=== PATIENT | female | born 1990 | race Caucasian/White ===

== ENCOUNTER 2017-02-27 20:17 | Emergency (ER) | payer OTHER ==
[~2017-02-27] VITALS: Ht 152.4 cm; Wt 54.4 kg
[2017-02-27] MEDS ORDERED: LACTATED RINGERS 1,000 ML IV ONE (20:58)
[2017-02-27] MEDS ORDERED: ONDANSETRON 4 MG/2 ML (SDV) Z0FRAN IVP ONE (21:00)
[2017-02-27 21:06] LABS: BILIRUBIN,URINE NEGATIVE (NEGATIVE); KETONES,URINE 3+ (NEGATIVE); LEUKOCYTE ESTERASE ,URINE NEGATIVE (NEGATIVE); NITRITE,URINE NEGATIVE (NEGATIVE); PH,URINE 5 (5-9); PROTEIN,URINE 1+ (NEGATIVE); UROBILINOGEN,URINE NORMAL (NORMAL)
[2017-02-27 21:19] LABS: WBC,URINE 0-2 /HPF
[2017-02-27 21:25] LABS: BASOPHILS % (AUTO) 0 % (0-10); EOSINOPHILS % (AUTO) 0 % (0-10); LYMPHOCYTES # (AUTO) 0.6 X 10^3 (1.0-4.0); LYMPHOCYTES % (AUTO) 10 % (12-44); MEAN CORPUSCULAR HEMOGLOBIN 23 PG (25-34); MEAN CORPUSCULAR HGB CONC 32 G/DL (32-36); MEAN CORPUSCULAR VOLUME 73 FL (80-99); MEAN PLATELET VOLUME 12.3 FL (7.4-10.4); MONOCYTES # (AUTO) 0.3 X 10^3 (0.0-1.0); MONOCYTES % (AUTO) 5 % (0-12); NEUTROPHILS # (AUTO) 4.7 X 10^3 (1.8-7.8); NEUTROPHILS % (AUTO) 85 % (42-75); PLATELET COUNT 190 10^3/uL (130-400); RED CELL DISTRIBUTION WIDTH 15.4 % (10.0-14.5); WHITE BLOOD COUNT 5.6 10^3/uL (4.3-11.0)
[2017-02-27 21:34] LABS: PROTHROMBIN TIME PATIENT 12.5 SEC (12.2-14.7)
[2017-02-27 21:43] LABS: ALANINE AMINOTRANSFERASE 8 U/L (0-55); ALBUMIN 4.3 G/DL (3.2-4.5); AMYLASE 57 U/L (25-125); ANION GAP 13 MMOL/L (5-14); ASPARTATE AMINO TRANSFERASE 11 U/L (5-34); BILIRUBIN,TOTAL 0.9 MG/DL (0.1-1.0); BLOOD UREA NITROGEN 9 MG/DL (7-18); BUN/CREATININE RATIO 11; CALCIUM 9.4 MG/DL (8.5-10.1); CARBON DIOXIDE 24 MMOL/L (21-32); CHLORIDE 101 MMOL/L (98-107); CREATININE SERUM 0.83 MG/DL (0.60-1.30); GFR ESTIMATED > 60; GLUCOSE 96 MG/DL (70-105); LIPASE 19 U/L (8-78); MAGNESIUM 1.7 MG/DL (1.8-2.4); POTASSIUM 3.8 MMOL/L (3.6-5.0); SODIUM 138 MMOL/L (135-145); TOTAL PROTEIN 7.8 G/DL (6.4-8.2)
[2017-02-27] MEDS ORDERED: RX-ONDANSETRON 4 MG ODT (ZOFRAN) PPK #4 PO STA (22:20)
[2017-02-27] MEDS ORDERED: ONDA4TAB8 PO (22:20)
--- NOTE | 2017-02-27 22:20 | ED General ---
General Chief Complaint: General Problems/Pain Stated Complaint: ACHES,FEVER,VOMMITTING Nursing Triage Note: PT TO ED 5 W/ FAMILY FOR C/O FATIGUE, BODY ACHES ET VOMITING X1 TODAY Nursing Sepsis Screen: No Definite Risk Source of Information: Spouse Exam Limitations: Other (PT DOES NOT SPEAK ANY TELUGU) History of Present Illness Time Seen by Provider: 20:45 Initial Comments STATES THAT PT WOKE UP THIS AM WITH HEADACHE, BODY ACHES, CHILLS, TIRED VOMITED X 1 A SMALL AMOUNT THIS EVENING NO DIARRHEA NO ABDOMINAL PAIN NO URINARY SYMPTOMS--VOIDING A NORMAL AMOUNT HAS HAD MINIMAL INTAKE TODAY NO COUGH OR URI SYMPTOMS NO SORE THROAT HAS NOT TAKEN ANYTHING FOR SYMPTOMS NO KNOWN SICK CONTACTS PCP: DR. REDMOND AT [facility] Allergies and Home Medications Allergies Coded Allergies: No Known Drug Allergies (Unverified , 02/25/17) Home Medications Ondansetron 4 Mg Tab.rapdis, 4 MG PO Q4H, #10 Prescribed by: FRANCISCO DUNHAM on 02/27/17 2220 Constitutional: see HPI, chills, No dizziness, malaise EENTM: no symptoms reported, No nose congestion, No throat pain Respiratory: no symptoms reported, No cough, No short of breath Cardiovascular: no symptoms reported Gastrointestinal: see HPI, No abdominal pain, No constipation, No diarrhea, loss of appetite, nausea, vomiting Genitourinary: no symptoms reported : No LMP: Feb 26, 2017 Musculoskeletal: see HPI (BODY ACHES) Skin: no symptoms reported, No rash Psychiatric/Neurological: See HPI, Headache, Denies Numbness, Denies Paresthesia, Denies Seizure, Denies Tingling, Denies Tremors Hematologic/Lymphatic: See HPI, Anemia (SEEN [facility] BY DR. MELTON 2 DAYS AGO FOR IRON SHOT--BEING TREATED FOR ANEMIA) Immunological/Allergic: no symptoms reported Past Vqyipym-Lofbgp-Kboxco Hx Patient Social History Alcohol Use: Denies Use Recreational Drug Use: No Smoking Status: Never a Smoker 2nd Hand Smoke Exposure: No Recent Foreign Travel: No Contact w/Someone Who Travel: No Recent Infectious Disease Expo: No Recent Hopitalizations: No Surgeries HX Surgeries: Yes ( X 2) Surgeries: Section Respiratory Hx Respiratory Disorders: No Cardiovascular Hx Cardiac Disorders: No Neurological Hx Neurological Disorders: No Reproductive System : No Hx : 2 Hx Para: 2 Hx Reproductive Disorders: No Genitourinary Hx Genitourinary Disorders: No Gastrointestinal Hx Gastrointestinal Disorders: No Musculoskeletal Hx Musculoskeletal Disorders: No Endocrine Hx Endocrine Disorders: No HEENT HX ENT Disorders: No Cancer Hx Cancer: No Psychosocial Hx Psychiatric Problems: No Blood Transfusions Hx Blood Disorders: Yes (ANEMIA) Physical Exam Vital Signs Vital Sign - Last 12Hours 02/27/17 20:24 Temp 97.2 Pulse 116 Resp 20 B/P (MAP) 112/83 Pulse Ox 97 O2 Delivery Room Air Capillary Refill : Less Than 3 Seconds General Appearance: No Apparent Distress, WD/WN HEENT: PERRL/EOMI, TMs Normal, Normal ENT Inspection, Pharynx Normal Neck: Full Range of Motion, Non Tender, Supple, Lymphadenopathy (L) (MILD ANTERIOR/POSTERIOR), Lymphadenopathy (R) (MILD ANTERIOR/POSTERIOR) Respiratory: Normal Breath Sounds, No Accessory Muscle Use, No Respiratory Distress Cardiovascular: No Edema, No JVD, No Murmur, Normal Peripheral Pulses, Tachycardia Gastrointestinal: Normal Bowel Sounds, No Organomegaly, No Pulsatile Mass, Non Tender, Soft Back: Normal Inspection, No CVA Tenderness Extremity: Normal Capillary Refill, Normal Inspection, Normal Range of Motion, Non Tender, No Calf Tenderness, No Pedal Edema Neurologic/Psychiatric: Alert, Oriented x3, No Motor/Sensory Deficits, Normal Mood/Affect, chief medical officer II-XII Norm as Tested Skin: Warm/Dry, Pallor Progress/Results/Core Measures Results/Orders Lab Results Laboratory Tests Test 02/27/17 20:59 02/27/17 21:07 02/27/17 21:58 Range/Units Urine Color YELLOW Urine Clarity SLIGHTLY CLOUDY Urine pH 5 5-9 Urine Specific [place] 1.025 H 1.016-1.022 Urine Protein 1+ H NEGATIVE Urine Glucose (UA) NEGATIVE NEGATIVE Urine Ketones 3+ H NEGATIVE Urine Nitrite NEGATIVE NEGATIVE Urine Bilirubin NEGATIVE NEGATIVE Urine Urobilinogen NORMAL NORMAL MG/DL Urine Leukocyte Esterase NEGATIVE NEGATIVE Urine RBC (Auto) 5+ H NEGATIVE Urine RBC 10-25 H /HPF Urine WBC 0-2 /HPF Urine Squamous Epithelial Cells 2-5 /HPF Urine Crystals NONE /LPF Urine Bacteria TRACE /HPF Urine Casts NONE /LPF Urine Mucus LARGE H /LPF Urine Culture Indicated NO White Blood Count 5.6 4.3-11.0 10^3/uL Red Blood Count 5.40 4.35-5.85 10^6/uL Hemoglobin 12.5 11.5-16.0 G/DL Hematocrit 39 35-52 % Mean Corpuscular Volume 73 L 80-99 FL Mean Corpuscular Hemoglobin 23 L 25-34 PG Mean Corpuscular Hemoglobin Concent 32 32-36 G/DL Red Cell Distribution Width 15.4 H 10.0-14.5 % Platelet Count 190 130-400 10^3/uL Mean Platelet Volume 12.3 H 7.4-10.4 FL Neutrophils (%) (Auto) 85 H 42-75 % Lymphocytes (%) (Auto) 10 L 12-44 % Monocytes (%) (Auto) 5 0-12 % Eosinophils (%) (Auto) 0 0-10 % Basophils (%) (Auto) 0 0-10 % Neutrophils # (Auto) 4.7 1.8-7.8 X 10^3 Lymphocytes # (Auto) 0.6 L 1.0-4.0 X 10^3 Monocytes # (Auto) 0.3 0.0-1.0 X 10^3 Eosinophils # (Auto) 0.0 0.0-0.3 10^3/uL Basophils # (Auto) 0.0 0.0-0.1 10^3/uL Prothrombin Time 12.5 12.2-14.7 SEC INR Comment 1.0 0.8-1.4 Activated Partial Thromboplast Time 28 24-35 SEC Sodium Level 138 135-145 MMOL/L Potassium Level 3.8 3.6-5.0 MMOL/L Chloride Level 101 98-107 MMOL/L Carbon Dioxide Level 24 21-32 MMOL/L Anion Gap 13 5-14 MMOL/L Blood Urea Nitrogen 9 7-18 MG/DL Creatinine 0.83 0.60-1.30 MG/DL Estimat Glomerular Filtration Rate > 60 BUN/Creatinine Ratio 11 Glucose Level 96 70-105 MG/DL Calcium Level 9.4 8.5-10.1 MG/DL Magnesium Level 1.7 L 1.8-2.4 MG/DL Total Bilirubin 0.9 0.1-1.0 MG/DL Aspartate Amino Transf (AST/SGOT) 11 5-34 U/L Alanine Aminotransferase (ALT/SGPT) 8 0-55 U/L Alkaline Phosphatase 58 40-136 U/L Total Protein 7.8 6.4-8.2 G/DL Albumin 4.3 3.2-4.5 G/DL Amylase Level 57 25-125 U/L Lipase 19 8-78 U/L TSH [place] Testing 1.85 0.35-4.94 UIU/ML Monoscreen NEGATIVE NEGATIVE Group A Streptococcus Screen NEGATIVE NEGATIVE Micro Results Microbiology 02/27/17 Influenza Types A,B Antigen (MANDY) - Final, Complete My Orders Orders - FRANCISCO DUNHAM DO Amylase (02/27/17 20:58) Cbc With Automated Diff (02/27/17 20:58) Comprehensive Metabolic Panel (02/27/17 20:58) Lipase (02/27/17 20:58) Magnesium (02/27/17 20:58) Monotest (02/27/17 20:58) Protime With Inr (02/27/17 20:58) Partial Thromboplastin Time (02/27/17 20:58) Rapid Strep A Screen (02/27/17 20:58) Thyroid Analyzer (02/27/17 20:58) Ondansetron Injection (Zofran Injectio (02/27/17 21:00) Saline Lock/Iv-Start (02/27/17 20:58) Lactated Ringers (Lr 1000 Ml Iv Solution (02/27/17 20:58) Urine Bedside (02/27/17 21:02) Chest Pa/Lat (2 View) (02/27/17 21:20) Rx-Ondansetron Po (Rx-Zofran Po) (02/27/17 22:20) Rx-Ondansetron Po (Rx-Zofran Po) (02/27/17 22:31) Medications Given in ED Current Medications Medications Dose Ordered Sig/Dudley Route Start Time Stop Time Status Last Admin Dose Admin Lactated Ringer's 1,000 ml @ 0 mls/hr Q0M ONCE IV 02/27/17 20:58 02/27/17 21:00 DC 02/27/17 21:08 1,000 MLS/HR Ondansetron HCl 4 mg ONCE ONCE IVP 02/27/17 21:00 02/27/17 21:01 DC 02/27/17 21:08 4 MG Vital Signs/I&O Vital Sign - Last 12Hours 02/27/17 02/27/17 20:24 22:39 Temp 97.2 Pulse 116 104 Resp 20 18 B/P (MAP) 112/83 Pulse Ox 97 97 O2 Delivery Room Air Intake and Output 02/28/17 00:00 Intake Total 1000 ml Balance 1000 ml Blood Pressure Mean: 93 Point of Care Testing Urine -Bedside: Negative Progress Note : Progress Note UNEVENTFUL ER STAY Departure Impression Impression: Primary Impression: Viral syndrome Disposition: 01 HOME, SELF-CARE Condition: Stable Departure-Patient Inst. Referrals: THEODORA BONE DO (PCP) Primary Care Physician Patient Instructions: VIRAL SYNDROME Add. Discharge Instructions: LOTS OF CLEAR LIQUIDS--WAETR, BROTH, JELLO, GATORADE BRATS DIET--BANANAS, RICE, APPLESAUCE, TOAST, SALTINES TYLENOL 1 GRAM / MOTRIN 800 MG 4 TIMES A DAY FOR PAIN OR FEVER FOLLOW UP WITH [facility] IN 2-3 DAYS IF NO BETTER RETURN TO ER IF WORSE All discharge instructions reviewed with patient and/or family. Voiced understanding. Scripts Ondansetron (Zofran Odt) 4 Mg Tab.rapdis 4 MG PO Q4H for Nausea/Vomiting, #10 TAB Prov: FRANCISCO DUNHAM DO 02/27/17 FRANCISCO DUNHAM DO Feb 27, 2017 22:20
[2017-02-27] MEDS ORDERED: RX-ONDANSETRON 4 MG ODT (ZOFRAN) PPK #4 ONE (22:31)
[2017-02-27 22:39] VITALS: BP 114/82
--- NOTE | 2017-02-27 23:00 | Diagnostic Imaging Report ---
EXAMINATION: Chest (PA and lateral). CLINICAL INDICATION: 26-year-old female, fever and bodyaches. COMPARISON: None. FINDINGS: Heart size and mediastinal contours are unremarkable. There is no identified pneumothorax. There is no pleural effusion. There is no identified focal airspace consolidation. IMPRESSION: No identified acute cardiopulmonary abnormality. Dictated by: Dictated on workstation # [id number]
== END 2017-02-27 22:39 | disposition home or self-care (01) ==
LOC: EDUNIT# 20:17 → ER 20:19
DX: B34.9 Viral infection, unspecified (principal); R11.2 Nausea with vomiting, unspecified; R51 Headache
CPT/HCPCS: 36415; 71020; 80053; 81000; 82150; 83690; 83735; 84443; 84703; 85025; 85610; 85730; 86308; 87430; 87804; 96361; 96374

== ENCOUNTER 2017-03-04 13:26 | Outpatient (RCR) | payer OTHER ==
[2017-02-03 14:54] LABS: BASOPHILS % (AUTO) 0 % (0-10); EOSINOPHILS % (AUTO) 1 % (0-10); LYMPHOCYTES # (AUTO) 2.2 X 10^3 (1.0-4.0); LYMPHOCYTES % (AUTO) 40 % (12-44); MEAN CORPUSCULAR HEMOGLOBIN 23 PG (25-34); MEAN CORPUSCULAR HGB CONC 32 G/DL (32-36); MEAN CORPUSCULAR VOLUME 73 FL (80-99); MEAN PLATELET VOLUME 11.5 FL (7.4-10.4); MONOCYTES # (AUTO) 0.3 X 10^3 (0.0-1.0); MONOCYTES % (AUTO) 6 % (0-12); NEUTROPHILS # (AUTO) 2.9 X 10^3 (1.8-7.8); NEUTROPHILS % (AUTO) 53 % (42-75); PLATELET COUNT 248 10^3/uL (130-400); RED BLOOD COUNT 4.92 10^6/uL (4.35-5.85); RED CELL DISTRIBUTION WIDTH 15.6 % (10.0-14.5); RETICULOCYTE % 0.54 % (0.50-2.40); WHITE BLOOD COUNT 5.4 10^3/uL (4.3-11.0)
[2017-02-03 15:23] LABS: PEP REPORT SEE PATH REPORT
[2017-02-03 15:26] LABS: ALANINE AMINOTRANSFERASE 8 U/L (0-55); ALBUMIN 3.9 G/DL (3.2-4.5); ANION GAP 6 MMOL/L (5-14); ASPARTATE AMINO TRANSFERASE 11 U/L (5-34); BILIRUBIN,TOTAL 0.8 MG/DL (0.1-1.0); BLOOD UREA NITROGEN 14 MG/DL (7-18); BUN/CREATININE RATIO 18; CALCIUM 8.6 MG/DL (8.5-10.1); CARBON DIOXIDE 26 MMOL/L (21-32); CHLORIDE 104 MMOL/L (98-107); CREATININE SERUM 0.76 MG/DL (0.60-1.30); GFR ESTIMATED > 60; GLUCOSE 83 MG/DL (70-105); SODIUM 136 MMOL/L (135-145); TOTAL PROTEIN 7.1 G/DL (6.4-8.2)
[2017-02-03 15:59] LABS: THYROID STIMULATING HORMONE 4.72 UIU/ML (0.35-4.94)
[2017-02-03 16:54] LABS: %SAT TOTAL IRON BINDING CAPIC 23 % (15-50); TIBC 459 ug/dL (280-380)
[2017-02-03 17:07] LABS: UIBC 352 ug/dL (55-450)
[2017-02-04 06:00] LABS: LIGHT CHAIN KAPPA SERUM QUANT 24.53 mg/L (3.30-19.40)
[2017-02-04 07:03] LABS: HOMOCYSTEINE 19.5 umol/L (<=10.3)
[2017-02-06 07:25] LABS: METHYLMALONIC ACID 0.12 umol/L (0.00-0.40)
[2017-02-11 11:14] LABS: CLIN PATHOLOGY REPORT FOOTNOTE
[2017-02-11 11:15] LABS: SERUM PROTEIN ELEC DETAIL L-17-0004334
[2017-02-25 13:35] LABS: BASOPHILS % (AUTO) 0 % (0-10); EOSINOPHILS # (AUTO) 0.1 10^3/uL (0.0-0.3); EOSINOPHILS % (AUTO) 2 % (0-10); LYMPHOCYTES # (AUTO) 1.6 X 10^3 (1.0-4.0); LYMPHOCYTES % (AUTO) 43 % (12-44); MEAN CORPUSCULAR HEMOGLOBIN 23 PG (25-34); MEAN CORPUSCULAR HGB CONC 31 G/DL (32-36); MEAN CORPUSCULAR VOLUME 74 FL (80-99); MEAN PLATELET VOLUME 12.5 FL (7.4-10.4); MONOCYTES # (AUTO) 0.2 X 10^3 (0.0-1.0); MONOCYTES % (AUTO) 5 % (0-12); NEUTROPHILS # (AUTO) 1.8 X 10^3 (1.8-7.8); NEUTROPHILS % (AUTO) 50 % (42-75); PLATELET COUNT 216 10^3/uL (130-400); RED BLOOD COUNT 5.21 10^6/uL (4.35-5.85); RED CELL DISTRIBUTION WIDTH 15.4 % (10.0-14.5); WHITE BLOOD COUNT 3.7 10^3/uL (4.3-11.0)
[~2017-03-04 13:26] MED LIST: FERRIC CARBOXYMALTOSE (CANCER) 750 MG in NS (IVPB) CANCER CENTER 250 ML IV SCH; ONDA4TAB8 PO
== END 2017-05-04 | disposition home or self-care (01) ==
LOC: ONC 13:26
PROVIDERS: ATTEND Internal Medicine Hematology & Oncology
DX: D50.9 Iron deficiency anemia, unspecified (principal)
CPT/HCPCS: 36415; 80053; 82728; 83090; 83540; 83883; 83921; 84155; 84165; 84443; 85025; 85045; 96365; 99213; 99214